=== PATIENT | female | born 1960 ===

== ENCOUNTER 2021-04-21 10:24 | Emergency (ER) | payer OTHER, SELFPAY ==
[2021-04-21 11:02] VITALS: BP 191/98; PULSE 80; RESP 16; TEMP 36.1; O2SAT 99; BMI 31.4
--- NOTE | 2021-04-21 11:06 | DI.RAD.S_ITS ---
PROCEDURE: XR FINGER RT MIN 2V INDICATIONS: deformity TECHNIQUE: AP hand, 2 views of the 4th finger(s) acquired. COMPARISON: None. FINDINGS: Bones: No acute fractures or dislocations. Mild deformity is seen of the distal aspect of the distal phalanx of the 4th finger, which is attributed to a remote fracture. No suspicious bony lesions. Soft tissues: No suspicious soft tissue calcifications. IMPRESSION: No acute plain film abnormality can be seen. Dictated by: Kamari Jennings M.D. on 04/21/2021 at 10:36 Approved by: Kamari Jennings M.D. on 04/21/2021 at 10:37
--- NOTE | 2021-04-21 13:45 | ED_ITS ---
HPI - Extremity Injury (Upper) <Dominick Alberto PA-C - Last Filed: 04/21/21 18:42> General Chief Complaint: Extremity Injury, Upper Stated Complaint: fell last night, broke finger Time Seen by Provider: 04/21/21 12:48 Source: patient Mode of arrival: Ambulatory Limitations: no limitations History of Present Illness HPI narrative: Patient is a 60-year-old female presenting to the emergency department today for evaluation of right ring finger pain. Patient states that she was in a [employer] last night when she stepped down from the chair and tripped injuring her right hand. She explains that she has experienced swelling of the right hand and right 4th finger following the injury. Of note, patient denies feeling dizzy or lightheadedness prior to falling and she states she did not hit her head or lose consciousness as a result of a fall. She denies fever, chills, chest pain, shortness of breath, cough, nausea, vomiting, diarrhea, abdominal pain, dysuria, hematuria, or pain elsewhere. No other concerns voiced at this time. Patient is from out of town and plans to head back home to [place] tomorrow. Review of Systems <oDminick Alberto PA-C - Last Filed: 04/21/21 18:42> Constitutional Constitutional: Denies chills, Denies fatigue, Denies fever(s), Denies frequent falls, Denies lethargy and Denies weakness Eyes Eyes: Denies loss of vision ENT Ears, Nose, Mouth, and Throat: Denies dizziness and Denies neck pain Cardiovascular Cardiovascular: Denies chest pain, Denies irregular heart rhythm, Denies l ightheadedness, Denies palpitations, Denies dyspnea, Denies dyspnea on exertion and Denies orthopnea Respiratory Respiratory: Denies cough, Denies dyspnea, Denies dyspnea on exertion and Denies wheezing Gastrointestinal Gastrointestinal: Denies abdominal pain, Denies change in bowel habits, Denies diarrhea, Denies nausea and Denies vomiting Genitourinary Genitourinary: Denies hematuria, Denies flank pain, Denies urinary incontinence and Denies urinary urgency Musculoskeletal Musculoskeletal: Denies back pain, Reports arthralgias (Right 4th digit the IP pain), Reports joint swelling (Right 4th digit swelling at PIP joint), Denies muscle weakness, Denies neck pain, Denies numbness and Denies tingling Neurologic Neurologic: Denies behavioral changes, Denies confusion, Denies dizziness, Denies frequent falls, Denies loss of vision, Denies numbness, Denies tingling and Denies weakness Psychiatric Psychiatric: Denies behavioral changes and Denies confusion Endocrine Endocrine: Denies fatigue and Denies palpitations Allergic/Immunologic Allergic/Immunologic: Denies wheezing Patient History <Dominick Alberto PA-C - Last Filed: 04/21/21 18:42> Social History Smoking Status: Never smoker Smoking Status: Never smoker Substance Use Type: marijuana Exam <RYLIE Rodriguez Last Filed: 04/21/21 18:42> Narrative Exam Narrative: GENERAL: 60 year old patient appears stated age. Well-developed patient, in no acute distress. HEAD: Atraumatic. Normocephalic. EYES: Pupils equal round and reactive. Extraocular motions intact. No scleral icterus. No injection or drainage. ENT: Nose without bleeding, purulent drainage. Throat without erythema, tonsillar hypertrophy or exudate. Airway patent. NECK: Trachea midline. Non tender CARDIOVASCULAR: Regular rate and rhythm without murmurs, gallops, or rubs. RESPIRATORY: Clear to auscultation. Breath sounds equal bilaterally. No wheezes, rales, or rhonchi. GASTROINTESTINAL: Abdomen soft, non-tender, nondistended. EXTREMITIES: No edema. Swelling appreciated over the dorsal aspect of the right hand without appreciable tenderness to palpation. Circumferential swelling appreciated over the PIP joint of the right 4th finger with tenderness to palpation. Decreased ability to flex the right 4th digit against resistance. BACK: Nontender without deformity or crepitance. No flank tenderness. NEURO: AOx3. SKIN: No rash or erythema of visible areas Initial Vital Signs Initial Vital Signs: Vital Signs Temperature 97.0 F L 04/21/21 11:02 Pulse Rate 80 04/21/21 11:02 Respiratory Rate 16 04/21/21 11:02 Blood Pressure 191/98 H 04/21/21 11:02 Pulse Oximetry 99 04/21/21 11:02 Cardio Pulses: radial pulses present on the right Course <Dominick Alberto PA-C - Last Filed: 04/21/21 18:42> Course Course Narrative: X-ray of right hand and fingers obtained. Orders Ordered: ED Orders 04/21/21 11:06 XR finger RT min 2V Stat Vital Signs Vital signs: Vital Signs - 8 hr 04/21/21 11:02 04/21/21 13:59 Temperature 97.0 F L Pulse Rate 80 78 Respiratory Rate 16 17 Blood Pressure 191/98 H 163/94 H Pulse Oximetry 99 99 MDM - Extremity Injury (Upper) <Dominick Alberto PA-C - Last Filed: 04/21/21 18:42> Imaging Data Extremity x-ray #1: Radiologist's Impression: PROCEDURE:? XR FINGER RT MIN 2V ? INDICATIONS:? deformity ? TECHNIQUE:? AP hand, 2 views of the 4th finger(s) acquired.? ? COMPARISON:? None. ? FINDINGS:? ? Bones:? No acute fractures or dislocations.? Mild deformity is seen of the distal aspect of the distal phalanx of the 4th finger, which is attributed to a remote fracture.? No suspicious bony lesions.? ? Soft tissues:? No suspicious soft tissue calcifications.? IMPRESSION:? No acute plain film abnormality can be seen. ? ? Dictated by: Kamari Jennings M.D. on 04/21/2021 at 10:36 ? ? Approved by: Kamari Jennings M.D. on 04/21/2021 at 10:37 ? [facility] Narrative Medical decision making narrative: Patient is a 60-year-old female presenting to the emergency department today for evaluation of right ring finger pain. To consider fracture versus dislocation versus sprain versus strain. Discussed with patient the results of her x-ray. Explained that no acute fracture was identified, but explained that further imaging may be needed. Patient states that she feels comfortable being discharged today with plans to follow-up with orthopedics when she returns back home to [place]. Strict return precautions discussed with patient prior to discharge. Discharge Plan Departure Patient Disposition: Home Clinical Impression: Finger sprain Instructions: DI for Finger Sprain Activity Restrictions/Additional Instructions: *You have been diagnosed with right 4th finger sprain *What to do: *Please continue to take your regular medications as directed. [ ] New medication prescriptions sent to your pharmacy: [ ] [ ] New medication written as a paper prescription [X] No new medications given *Please follow up with your primary care provider in 2-3 days, call for an appointment. Let them know you were seen in the Emergency Department and that we ask that you be seen in follow up. We will electronically transmit a record of today's note if your PCP is in our system. *Please apply ice to the painful area as needed. Keep the right upper extremity elevated above the level of the heart to reduce swelling. Alternate Tylenol and ibuprofen as needed for pain. Please follow-up with orthopedics once you return back home to [place]. *If you do not have a primary care provider please contact the [facility] Resource line at [phone]. They will ask some questions about your medical history and help get you set up with a doctor in the community. *Return to Emergency Department if you should have any new, worsening or concerning symptoms, such as fever greater than 101 F, shaking chills, worsening pain, persistent vomiting or other bothersome symptoms.
[2021-04-21 13:59] VITALS: BP 163/94; PULSE 78; RESP 17; O2SAT 99
== END 2021-04-21 14:01 | disposition home or self-care (01) ==
PROVIDERS: Emergency Provider Physician Assistant
DX: S63.614A Unspecified sprain of right ring finger, initial encounter (principal); W01.0XXA Fall on same level from slipping, tripping and stumbling without subsequent striking against object, initial encounter; Y93.89 Activity, other specified
CPT/HCPCS: 73140; 99281; 99283